=== PATIENT | female | born 1975 | race Two or more races ===

== ENCOUNTER 2024-02-23 07:16 | Emergency (ER) | payer BC ==
[~2024-02-23] VITALS: Ht 172.7 cm; Wt 70.3 kg
[2024-02-23] MEDS ORDERED: SULFASALAZINE500 MG (07:39)
[2024-02-23] MEDS ORDERED: MEPERIDINE HCL/PF 50 MG/ML VIAL IM STA (09:44)
[2024-02-23 09:53] LABS: HEMOGLOBIN 13.7 g/dL (12.0-15.00); MEAN CELL VOLUME 86.3 fL (80.00-100.00); MEAN CORPUSCULAR HEMOGLOBIN 29.5 pg (27.00-32.0); MEAN CORPUSCULAR HGB CONC 34.2 g/dl (32.0-36.0); PLATELET COUNT 350 K/uL (150-450); RED BLOOD COUNT 4.63 M/uL (4.00-6.00); RED CELL DISTRIBUTION WIDTH 12.7 % (11.5-14.5)
[2024-02-23 10:03] LABS: URINE APPEARANCE Clear; URINE BILIRRUBIN Negative (NEGATIVE); URINE BLOOD Negative; URINE COLOR Yellow; URINE GLUCOSE Negative (NEGATIVE); URINE LEUKOCYTE Negative; URINE NITRATE Negative; URINE PROTEIN Negative (NEGATIVE); URINE UROBILINOGEN 0.2 E.U./dl
[2024-02-23 10:04] LABS: URINE BACTERIA 3201.6 uL (0.0-1933); URINE EPITHELIAL CELLS 14.5 uL (0.0-38.8); URINE RBC 3.5 uL (0.0-20.8); URINE WBC 21.8 uL (0.0-23.2)
[2024-02-23 10:23] LABS: ALBUMIN 3.3 gm/dL (3.4-5.0); BILIRUBIN TOTAL 0.38 mg/dL (0.3-1.2); BILIRUBIN,CONJUGATED 0.11 mg/dL (0.0-0.2); BILIRUBIN,UNCONJUGATED 0.27 mg/dL (0.0-0.6); CALCIUM 9.6 mg/dL (8.5-10.1); CREATININE SERUM 0.83 mg/dL (0.55-1.02); GFR 73.06; POTASSIUM 3.8 mEq/L (3.5-5.1); TOTAL PROTEIN 8.1 gm/dL (6.4-8.2)
[2024-02-23] MEDS ORDERED: TRAMADOL HCL50 MG PO (13:12)
== END 2024-02-23 13:47 | disposition left against medical advice (07) ==
LOC: ER 07:17
PROVIDERS: General Practice
DX: R19.09 Other intra-abdominal and pelvic swelling, mass and lump (principal); R10.9 Unspecified abdominal pain; Z88.0 Allergy status to penicillin; D25.9 Leiomyoma of uterus, unspecified